=== PATIENT | female | born 1950 | race African-American/Black ===

== ENCOUNTER → 2019-12-07 | Day surgery (SDC) | payer MEDICARE, OTHER ==
[2019-12-04 11:12] LABS: BASOPHILS % 0.4 % (0.0-1.0); EOSINOPHILS % 0.6 % (0.0-6.0); HEMATOCRIT 37.6 % (34.2-44.1); HEMOGLOBIN 12.3 g/dL (12.0-16.0); LYMPHOCYTES # (AUTO) 1.7 (1.0-3.2); LYMPHOCYTES % 23.6 % (18.0-39.1); MEAN CORPUSCULAR HEMOGLOBIN 28.5 pg (28-32); MEAN CORPUSCULAR HGB CONC 32.7 g/dL (31-35); MONOCYTES # (AUTO) 0.6 (0.2-0.8); MONOCYTES % 8.1 % (4.4-11.3); NEUTROPHILS # (AUTO) 4.8 (2.1-6.9); PLATELET COUNT 223 x10e3/uL (140-360); RED BLOOD COUNT 4.32 x10e6/uL (3.6-5.1); RED CELL DISTRIBUTION WIDTH 14.6 % (11.7-14.4)
[~2019-12-07] MED LIST: ELIQUIS5 MG PO; GLIPIZIDE-METF1 EAC2 PO; PROPOFOL IV EMULSION 10 MG/ML 20 ML VIAL ONE; TYLENOL ARTHRITIS PO; ULTRAM 50MG50 MG PO; VALSARTAN-HCTZ1 EAC1 PO
--- OUTSIDE RECORDS SUMMARY | 2019-12-07 09:48 | XMS REPORT ---
Author Author Nely Emery Organization [employer] Address Unknown Phone Unavailable Care Team Providers Care [employer] Guidance Counselor Name Role Phone Lily Emery CP Unavailable Allergies, Adverse Reactions, Alerts Substance Reaction Event Type N.K.D.A. Info Not Available Non Drug Allergy Problems Problem Type Condition Code Onset Dates Condition Statu s Assessment Counseling NOS Z71.9 Active Assessment Lumbago with sciatica, right side M54.41 Active Assessment Hyperuricemia E79.0 Active Assessment Peripheral neuropathy, idiopathic G60.9 Active Assessment History of blood clots Z86.718 Activ e Problem Lumbago with sciatica, right side M54.41 Active Problem Osteoarthritis involving multiple joints on both sides of body M15.9 Active Problem Peripheral neuropathy, idiopathic G60.9 Active Assessment Pain of left foot M79.672 Active Assessment Pain in right foot M79.671 Active Assessment Osteoarthritis involving multiple joints on both sides of body M15.9 Active Medications Medication Code System Code Instructions Start Date End Date Status Dosage Xarelto [facility] 19217681711 15 MG Orally Once a day Acti ve 1 tablet with food Duloxetine HCl [facility] 63238041225 60 MG Orally Once a day Active 1 capsule GlipiZIDE [facility] 64312689516 5 MG Orally Once a day Act hiram 1 tablet Medrol [facility] 52908063824 4 MG Orally Once a day December 06, 2019 Active as directed Losartan Potassium [facility] 34564901422 50 MG Orally Once a day Active 1 tablet Tramadol HCl [facility] 37061527023 50 MG Orally Once a day Mar 05, 2020 Active 1 tablet as needed Eliquis [facility] 47322433199 2.5 MG Orally Active as di rected Results No Known Results Summary Purpose [employer] Submission
--- OUTSIDE RECORDS SUMMARY | 2019-12-07 09:48 | XMS REPORT ---
Author Author Nely Emery Organization [employer] Address Unknown Phone Unavailable Care Team Providers Care Builder Operator Name Role Phone Lily Emery CP Unavailable [...] Start Date End Date Status Dosage Xarelto [facility] 40501148181 15 MG Orally Once a day Acti ve 1 tablet with food Tramadol HCl ND 72687277609 50 MG Orally Once a day Active 1 tablet as needed Losartan Potassium ND 89900690111 50 MG Orally Once a day Active 1 tablet GlipiZIDE ND 27328663603 5 MG Orally Once a day Act hiram 1 tablet Tizanidine HCl ND 21720619444 4 MG Orally bid Jul 31, 2019 Active 1 tablet as needed Duloxetine HCl ND 08413677489 60 MG Orally Once a day May 02, 2019 Active 1 capsule Vital Signs Date/Time: May 02, 2019 Height 67 in Blood Pressure Diastolic 86 mm Hg Blood Pressure Systolic 155 mm Hg Weight 215 lbs Results No Known Results Summary Purpose [employer] Submission
--- OUTSIDE RECORDS SUMMARY | 2019-12-07 09:48 | XMS REPORT ---
Author Author Nely Emery Organization [employer] Address Unknown Phone Unavailable Care Team Providers Care Pawn Shop Keeper Name Role Phone Lily Emery CP Unavailable Allergies, Adverse Reactions, Alerts Substance Reaction Event Type N.K.D.A. Info Not Available Non Drug Allergy Problems Problem Type Condition Code Onset Dates Condition Statu s Assessment Counseling NOS Z71.9 Active Assessment Osteoarthritis involving multiple joints on both sides of body M15.9 Active Problem Osteoarthritis involving multiple joints on both sides of body M15.9 Active Problem Lumbago with sciatica, right side M54.41 Active Assessment Lumbago with sciatica, right side M54.41 Active Assessment Hyperuricemia E79.0 Active Assessment Pain of left foot M79.672 Active Assessment Pain in right foot M79.671 Active Medications Medication Code System Code Instructions Start Date End Date Status Dosage GlipiZIDE ND 08833944168 5 MG Orally Once a day Act hiram 1 tablet Tizanidine HCl ND 88731639688 4 MG Orally bedtime Apr 12, 2019 Active 1 tablet as needed Tramadol HCl ND 43320957084 50 MG Orally Once a day Active 1 tablet as needed Xarelto ND 97007876804 15 MG Orally Once a day Acti ve 1 tablet with food Losartan Potassium ND 25505461255 50 MG Orally Once a day Active 1 tablet Vital Signs Date/Time: Apr 12, 2019 Height 67 in Blood Pressure Diastolic 78 mm Hg Blood Pressure Systolic 150 mm Hg Weight 213.0 lbs Results No Known Results Summary Purpose [employer] Submission
--- OUTSIDE RECORDS SUMMARY | 2019-12-07 09:48 | XMS REPORT ---
Author Author Nely Emery Organization [employer] Address Unknown Phone Unavailable Care Team Providers Care Wheat Farmer Name Role Phone Lily Emery CP Unavailable [...] Instructions Start Date End Date Status Dosage Tramadol HCl [facility] 66808868409 50 MG Orally Once a day Active 1 tablet as needed Xarelto [facility] 61248897429 15 MG Orally Once a day Acti ve 1 tablet with food Duloxetine HCl ND 62870127200 60 MG Orally Once a day Active 1 capsule GlipiZIDE [facility] 00992135466 5 MG Orally Once a day Act hiram 1 tablet Losartan Potassium [facility] [address]-58 50 MG Orally Once a day Active 1 tablet Vital Signs Date/Time: Aug 09, 2019 Height 67 in Blood Pressure Diastolic 99 mm Hg Blood Pressure Systolic 155 mm Hg Weight 214.8 lbs Results No Known Results Summary Purpose [employer] Submission
--- OUTSIDE RECORDS SUMMARY | 2019-12-07 09:48 | XMS REPORT | Continuity of Care Document ---
Author Author Neil Busuu KARLO Crockett Organization Provender Address Unknown Phone Unavailable Care Team Providers Care Lathe Turner Name Role Phone b3 bio Information [address] Unavailable Un available Problems Problem Status Onset Date Classification Date Reported Comments Source Counseling NOS Active Diagnosis 12/07/2019 Lily Najam Osteoarthritis involving multiple joints on both sides of body Active Prob alirio 12/07/2019 Lily Najam Lumbago with sciatica, right side Active Diagnosis 0 12/07/2019 Lily Najam Hyperuricemia Active Diagnosis 12/07/2019 Lily Najam Pain of left foot Active Diagnosis 12/07/2019 Lily Najam Pain in right foot Active Diagnosis 12/07/2019 Lily Najam Peripheral neuropathy, idiopathic Active Diagnosis 0 12/07/2019 Lily Najam History of blood clots Active Diagnosis 12/07/2019 Lily Najam Medications Medication Details Route Status Patient Instructions Ordering Provider Order Date Source Tramadol HCl 1 tablet as needed Orally Active 50 MG Orally Once a day [facility] 03/05/2020 Lily Najam Medrol as directed Orally Active 4 MG Orally Once a day [facility] 12/06/2019 Lily Najam Tizanidine HCl 1 tablet as nee ded Orally Active 4 MG Orally bid [facility] 07/31/2019 Lily Najam Duloxetine HCl 1 capsule Orally Active 60 MG Orally Once a day [facility] 05/02/2019 Lily Naja Tizanidine HCl 1 tablet as nee ded Orally Active 4 MG Orally bedtime [facility] 04/12/2019 Lily Naja GlipiZIDE 1 tablet Orally Active 5 MG Orally Once a day [facility] Tramadol HCl 1 tablet as needed Orally Active 50 MG Orally Once a day [facility] Xarelto 1 tablet with food Orally Active 15 MG Orally Once a day [facility] Losartan Potassium 1 tablet Orally Active 50 MG Orally Once a day [facility] N[facility]am Duloxetine HCl 1 capsule Orally Active 60 MG Orally Once a day Najam Lily Najam Losartan Potassium 1 tablet Orally Active 50 MG Orally Once a day Najam Lily Najam Losartan Potassium 1 tablet Orally Active 50 MG Orally Once a day Najam Lily Najam Eliquis as directed Orally Active 2.5 MG Orally Najam Sabee n Najam Allergies, Adverse Reactions, Alerts Substance Category Reaction Severity Reaction type Status Date Reported Comments Source N.K.D.A. Adverse Reaction Info Not Available Adverse Reaction 12/06/2019 Lily Najam Immunizations No Data Provided for This Section Results No Data Provided for This Section Pathology Reports No Data Provided for This Section Diagnostic Reports No Data Provided for This Section Consultation Notes No Data Provided for This Section Discharge Summaries No Data Provided for This Section History and Physicals No Data Provided for This Section Vital Signs Vital Sign Value Date Comments Source Height 67 0 08/09/2019 Lily Najam Diastolic (mm Hg) 99 08/09/2019 Lily Najam Systolic (mm Hg) 155 08/09/2019 Lily Najam Weight 214.8 08/09/2019 Lily Najam Height 67 1 Lily Najam Diastolic (mm Hg) 86 05/02/2019 Lily Najam Systolic (mm Hg) 155 05/02/2019 Lily Najam Weight 215 05/02/2019 Lily Najam Height 67 0 04/12/2019 Lily Najam Diastolic (mm Hg) 78 04/12/2019 Lily Najam Systolic (mm Hg) 150 04/12/2019 Lily Najam Weight 213.0 04/12/2019 Lily Najam Encounters No Data Provided for This Section Procedures No Data Provided for This Section Assessment and Plan No Data Provided for This Section Plan of Care No Data Provided for This Section Social History No Data Provided for This Section Family History No Data Provided for This Section Advance Directives No Data Provided for This Section Functional Status No Data Provided for This Section
[2019-12-07 13:18] VITALS: BP 123/77
== END | disposition home or self-care (01) ==
LOC: OR 09:44
PROVIDERS: ATTEND Internal Medicine
DX: K59.00 Constipation, unspecified (principal); K57.30 Diverticulosis of large intestine without perforation or abscess without bleeding; K63.89 Other specified diseases of intestine; K64.0 First degree hemorrhoids; E11.22 Type 2 diabetes mellitus with diabetic chronic kidney disease; I12.9 Hypertensive chronic kidney disease with stage 1 through stage 4 chronic kidney disease, or unspecified chronic kidney disease; N18.9 Chronic kidney disease, unspecified; Z01.810 Encounter for preprocedural cardiovascular examination; Z01.812 Encounter for preprocedural laboratory examination; Z11.59 Encounter for screening for other viral diseases; Z79.84 Long term (current) use of oral hypoglycemic drugs; Z68.31 Body mass index [BMI] 31.0-31.9, adult; Z86.718 Personal history of other venous thrombosis and embolism; Z86.711 Personal history of pulmonary embolism; Z80.0 Family history of malignant neoplasm of digestive organs
CPT/HCPCS: 36415 ×2; 45380; 82948; 85025; 87635; 88305; 93005; J2704; 45378